=== PATIENT | male | born 1990 | race Caucasian/White ===

== ENCOUNTER 2018-02-13 19:56 | Emergency (ER) | payer BC, OTHER ==
[2018-02-13 20:04] VITALS: BP 144/85; PULSE 82; TEMP 97.8; BMI 42.8
[2018-02-13] MEDS ORDERED: ALBUTEROL SO4 2.5/IPRATROPIUM 0.5 INH SOL 3 ML VIAL.NEB. NEB ONE ×2 (20:05→20:27)
--- NOTE | 2018-02-13 20:05 | PDOC ---
Rapid Medical Evaluation Time Seen by Provider: 02/13/18 20:02 Medical Evaluation: Allergies Allergy/AdvReac Type Severity Reaction Status Date / Time No Known Allergies Allergy Verified 01/19/16 19:34 Vital Signs Temp Pulse Resp BP Pulse Ox 97.8 F 82 18 144/85 99 02/13/18 20:01 02/13/18 20:01 02/13/18 20:01 02/13/18 20:01 02/13/18 20:01 02/13/18 20:04 I have performed a brief in-person evaluation of this patient. The patient presents with a chief complaint of:cough for 1 days history of asthma , no fever no chest pain Pertinent physical exam findings:lungs with exp wheezing I have ordered the following:duoneb The patient will proceed to the ED for further evaluation.
[2018-02-13] MEDS ORDERED: DEXAMETHASONE LIQUID 0.5 MG/5 ML 240 ML BULK BOTTLE PO ONE (20:32)
[2018-02-13] MEDS ORDERED: DEXAMETHASONE SOD PHOSPHATE 10 MG/1 ML VIAL ONE (20:35)
--- NOTE | 2018-02-13 21:01 | PDOC ---
History of Present Illness - General Chief Complaint: Respiratory Stated Complaint: ASTHMA Time Seen by Provider: 02/13/18 20:02 - History of Present Illness Initial Comments: 27-year-old male with a past medical history significant for asthma presents for evaluation of wheezing times one day first noticed after started playing basketball yesterday. He states he woke up wheezing. No other associated symptoms. 02/13/18 20:58 Past History - Past Medical History Allergies/Adverse Reactions: Allergies Allergy/AdvReac Type Severity Reaction Status Date / Time No Known Allergies Allergy Verified 02/13/18 20:04 Home Medications: Ambulatory Orders NK [No Known Home Medication] 02/13/18 Asthma: Yes COPD: No - Immunization History Immunization Up to Date: Yes - Suicide/Smoking/Psychosocial Hx Smoking History: Never smoked Have you smoked in the past 12 months: No Number of Cigarettes Smoked Daily: 2 Hx Alcohol Use: Yes (social) Drug/Substance Use Hx: No Review of Systems - Review of Systems Respiratory: Yes: See HPI, Wheezing All Other Systems: Reviewed and Negative *Physical Exam - Vital Signs Last Vital Signs Temp Pulse Resp BP Pulse Ox 97.8 F 82 18 144/85 99 02/13/18 20:01 02/13/18 20:01 02/13/18 20:01 02/13/18 20:01 02/13/18 20:01 - Physical Exam Comments: My exam after 1 DuoNeb HEAD: NC/AT EYES: Conjuntiva clear Ears: Canals and TM's normal NOSE: No d/c THROAT: Moist mucous membrances, oral pharanx clear, uvula midline NECK: Supple without adenopathy CARDIAC: S1 S2 LUNGS: CTA Full and Equal breath sounds ABDOMEN: Soft NT ND MS: Full ROM in all joints without edema NEUROLOGIC: No gross sensory or motor deficits, NVID SKIN: Normal color and temperature no lesions or rashes 02/13/18 20:59 ED Treatment Course - Medications Given in the ED: ED Medications Discontinued Medications Generic Name Dose Route Start Last Admin Trade Name Freq PRN Reason Stop Dose Admin Albuterol/Ipratropium 1 amp 02/13/18 20:05 02/13/18 20:29 Duoneb - NEB 02/13/18 20:06 1 amp ONCE ONE Administration Dexamethasone 10 mg 02/13/18 20:32 02/13/18 20:37 Decadron Liquid - PO 02/13/18 20:33 10 mg ONCE ONE Administration *DC/Admit/Observation/Transfer Diagnosis at time of Disposition: Asthma attack - Discharge Dispostion Disposition: HOME Condition at time of disposition: Improved Decision to Admit order: No - Referrals Referrals: Leno Begum MD [Staff Physician] - - Patient Instructions Printed Discharge Instructions: Asthma -- Adult Additional Instructions: Return to the emergency room should symptoms worsen or go unresolved. I've given you referrals to a pipe racker to can further evaluate and manage her asthma. Follow-up with your primary care physician and pulmonology in one to 2 days. Continue home asthma medication as directed. - Post Discharge Activity
== END 2018-02-13 21:03 | disposition home or self-care (01) ==
LOC: JERFT 19:56
PROC: 3E0F7GC Introduction of Other Therapeutic Substance into Respiratory Tract, Via Natural or Artificial Opening (ICD-10-PCS; principal; 2018-02-13)
DX: J45.901 Unspecified asthma with (acute) exacerbation (principal)
CPT/HCPCS: 99281-25; J7620